=== PATIENT | male | born 1950 | race Caucasian/White ===

== ENCOUNTER 2020-05-12 10:24 | Inpatient (IN) | payer MEDICARE, OTHER ==
[~2020-05-12] VITALS: Ht 167.6 cm; Wt 73.0 kg
[~2020-05-12 10:24] MED LIST: ALBU2.5V38 IH; CLOP75TA15 PO; LORA10TA68 PO; MONT10TA22 PO; THEO400T PO
--- NOTE | 2020-05-12 10:24 | NUR ---
PT BIB FAMILY C/O SOB SINCE THIS AM. PT IS AAOX4, NOTED RESPIRATORY DISTRESS, HOOKED TO O2 VIA NB AT 15 LPM, HOOKED TO SHOVEL MECHANIC, KEPT RESTED AND COMFORTABLE. WILL CONTINUE TO MONITOR.
--- NOTE | 2020-05-12 10:28 | NUR ---
AT BEDSIDE FOR EVAL.
--- NOTE | 2020-05-12 10:30 | NUR ---
IV LINE ESTABLISHED BLOOD DRAWN AND SENT TO LAB.
[2020-05-12] MEDS ORDERED: IPRATROPIUM NEB FS 0.5 MG/2.5 ML AMPUL.NEB ONE ×2 (10:35→10:57)
[2020-05-12] MEDS ORDERED: ALBUTEROL FS 2.5 MG/3 ML VIAL.NEB ONE ×2 (10:35→10:57)
--- NOTE | 2020-05-12 10:35 | NUR ---
RT AT BEDSIDE FOR BREATHING TX.
[2020-05-12] MEDS ORDERED: methylPREDNISolone SOD SUCC 125 MG/2ML VIAL ONE (10:37)
[2020-05-12 10:43] LABS: BASOPHILS % (AUTO) 0.7 % (0.0-2.0); EOSINOPHILS % (AUTO) 16.7 % (0.0-6.0); HEMATOCRIT 47 % (39-51); HEMOGLOBIN 15.4 g/dL (13.5-17.5); LYMPHOCYTES # (AUTO) 1.9 /CMM (0.8-4.8); MEAN CORPUSCULAR HGB CONC 33 g/dl (31.0-36.0); MEAN CORPUSCULAR VOLUME 94 fL (80-96); MONOCYTES # (AUTO) 0.5 /CMM (0.1-1.30); MONOCYTES % (AUTO) 7.2 % (2.0-12.0); NEUTROPHILS # (AUTO) 3.1 /CMM (1.8-8.9); NEUTROPHILS % (AUTO) 46.4 % (43.0-81.0); PLATELET COUNT (AUTO) 315 /CMM (150-450); RED BLOOD CELL COUNT(AUTO) 4.96 MIL/uL (4.5-6.0); WHITE BLOOD COUNT (AUTO) 6.7 K/uL (4.3-11.0)
[2020-05-12] MEDS ORDERED: FLUT1BLS INH (10:45)
[2020-05-12] MEDS ORDERED: TAMS-12 PO (10:45)
[2020-05-12] MEDS ORDERED: VALS1TAB2 PO (10:45)
[2020-05-12] MEDS ORDERED: FOLIC PO (10:45)
[2020-05-12] MEDS ORDERED: MECL-159 PO (10:45)
[2020-05-12] MEDS ORDERED: CARV6.252 PO (10:45)
[2020-05-12] MEDS ORDERED: ALBU18HF2 INH (10:45)
[2020-05-12] MEDS ORDERED: ERGO500014 MT (10:45)
[2020-05-12] MEDS ORDERED: OMEP40CA13 PO (10:45)
--- NOTE | 2020-05-12 10:50 | NUR ---
RT ED GAVE VERBAL ORDER FOR 1 HR CONTINUOUS BREATHING TX. TX DONE.
--- NOTE | 2020-05-12 10:50 | NUR ---
COVID SPECIMEN AND INFLUENZA OBTAINED AND SENT TO LAB.
[2020-05-12] MEDS ORDERED: Magnesium 1GM/D5W 100ML PREMIX 200 ML IV ONE (10:56)
[2020-05-12 10:58] LABS: CARBON DIOXIDE 26 mmol/L (21-32); CHLORIDE 105 mmol/L (98-107); GLUCOSE 114 mg/dL (74-106); POTASSIUM 3.6 mmol/L (3.5-5.1); SODIUM SERUM 141 mmol/L (136-145); UREA NITROGEN, BLOOD 20 mg/dL (7-18)
[2020-05-12] MEDS ORDERED: methylPREDNISolone SOD SUCC 125 MG/2ML VIAL IV ONE (11:00)
[2020-05-12] MEDS ORDERED: Magnesium 1 GM/2 ML VIAL IV ONE (11:00)
[2020-05-12] MEDS ORDERED: ALBUTEROL FS 2.5 MG/3 ML VIAL.NEB NEB ONE (11:00)
[2020-05-12] MEDS ORDERED: IPRATROPIUM NEB FS 0.5 MG/2.5 ML AMPUL.NEB NEB ONE (11:00)
[2020-05-12 11:04] LABS: B-TYPE NATRIURETIC PEPTIDE 56 PG/ML (0-125)
--- NOTE | 2020-05-12 11:05 | NUR ---
MOVE SHEET COMPLETE AND CALLED FOR SOLITARIO BED.
[2020-05-12 11:36] LABS: LYMPHOCYTES % (MANUAL) 24 % (16-48); NEUTROPHILS % (MANUAL) 49 (42-76)
[2020-05-12 11:37] LABS: EOSINOPHILS % (MANUAL) 14 % (0-4); MONOCYTES % (MANUAL) 13 % (0-11.0)
--- NOTE | 2020-05-12 11:38 | NUR ---
[facility] CALLED HUMAN RESOURCES BENEFITS ADMINISTRATOR PAGED.
--- NOTE | 2020-05-12 12:34 | NUR ---
GOING SOLITARIO 103
--- NOTE | 2020-05-12 12:40 | NUR ---
REPORT GIVEN TO JAVIER JONES.
[2020-05-12] MEDS ORDERED: ONDANSETRON HCL/PF 4 MG/2 ML VIAL IVP PRN (13:00)
[2020-05-12] MEDS ORDERED: Z GUARD REMEDY 2 OZ OINT TP PRN (13:00)
[2020-05-12] MEDS ORDERED: MAGNESIUM HYDROXIDE 30 ML UDC PO PRN (13:00)
[2020-05-12] MEDS ORDERED: ZOLPIDEM TARTRATE 5 MG TABLET PO PRN (13:00)
[2020-05-12] MEDS ORDERED: MAG HYDROX/AL HYDROX/SIMETH 30 ML UDC PO PRN (13:00)
[2020-05-12] MEDS ORDERED: HYDROCODONE/APAP 5/325MG TABLET PO PRN (13:00)
[2020-05-12] MEDS ORDERED: ACETAMINOPHEN 325 MG TABLET PO PRN (13:00)
--- NOTE | 2020-05-12 13:08 | NUR ---
RN OPENING NOTE Received patient around 1pm via [employer] [place] assisted by 2 staff nurses. On NC 4L no signs of distress. Noted with coughing and wheezing. Per patient its because he got up from the gurney to walk to the bed. Vital signs within normal limits. AO X4 Amharic Speaking. Need desktop publishing specialist. Provided with urinal. Has LAC #18 flushes well. Has hearing aid on both ears. Safety measures implemented. Call light within reach. Will cont to monitor.
[2020-05-12 13:15] VITALS: BP 145/66
[2020-05-12 16:00] VITALS: BP 144/71
[2020-05-12 16:25] VITALS: BP 144/71
[2020-05-12] MEDS: methylPREDNISolone SOD SUCC 125 MG/2ML VIAL IV SCH (17:18)
--- NOTE | 2020-05-12 18:51 | NUR ---
RN CLOSING NOTE Patient in bed awake no signs of distress. on NC 4L tolerating well. o2 sat 98%. Alert oriented x4 Mongolian speaking. Tele monitor reading ST 104bpm. Urinal at bedside, collected 200ml clear yellow urine. No co pain or discomfort. Still coughing non productive. Less wheezing. All due meds given. No signs of adverse reaction to medications. Vital signs within normal limits. Safety measures maintained. Call light within reach. Will endorse to night nurse for woo.
--- NOTE | 2020-05-12 19:10 | NUR ---
RN OPENING NOTES: Rec'd pt in bed, A&Ox4 Yemeni speaking. SR on tele monitor. LAC #18 patent and flushed. Dressing c/d/i. Pt has urinal at bedside. No pain reported at this time. Safety measures in place. Will continue to monitor. Addendum: 05/12/20 at 2009 by GLENNY ESQUIVEL RN On 3LPM NC tolerating well. No SOB or resp distress noted.
[2020-05-12 20:00] VITALS: BP 143/72
[2020-05-12] MEDS: TAMSULOSIN 0.4 MG CAP.SR.24H PO SCH (21:01)
[2020-05-12] MEDS: IPRATROPIUM NEB FS 0.5 MG/2.5 ML AMPUL.NEB NEB PRN (23:27)
[2020-05-12] MEDS: ALBUTEROL FS 2.5 MG/0.5 ML VIAL.NEB NEB PRN (23:27)
[2020-05-13] VITALS: BP 125/68
[2020-05-13] MEDS: methylPREDNISolone SOD SUCC 125 MG/2ML VIAL IV SCH ×5 (00:21→22:16)
--- NOTE | 2020-05-13 01:57 | NUR ---
RN NOTE: Gave report to JAVIER Sin for NEAL. Pt in stable condition, sleeping.
[2020-05-13 04:00] VITALS: BP 141/65
[2020-05-13] MEDS: ALBUTEROL FS 2.5 MG/0.5 ML VIAL.NEB NEB PRN (04:56)
[2020-05-13] MEDS: IPRATROPIUM NEB FS 0.5 MG/2.5 ML AMPUL.NEB NEB PRN (04:56)
--- NOTE | 2020-05-13 05:27 | NUR ---
REPORTED TO DR. DO ABOUT PATIENT HAVING ASTHMA ATTACK AND BREATHING TX WAS GIVEN FOUR HOURS AGO AND THE ORDER IS Q6H. DR. DO CHANGED FREQUENCY TO Q4H NOTED AND CARRIED OUT.
[2020-05-13] MEDS ORDERED: IPRATROPIUM NEB FS 0.5 MG/2.5 ML AMPUL.NEB NEB PRN (05:30)
[2020-05-13] MEDS ORDERED: ALBUTEROL FS 2.5 MG/0.5 ML VIAL.NEB NEB PRN (05:30)
[2020-05-13 06:17] LABS: BASOPHILS % (AUTO) 0.1 % (0.0-2.0); HEMATOCRIT 40 % (39-51); HEMOGLOBIN 13.7 g/dL (13.5-17.5); LYMPHOCYTES # (AUTO) 0.4 /CMM (0.8-4.8); LYMPHOCYTES % (AUTO) 8.5 % (20.0-44.0); MEAN CORPUSCULAR HGB CONC 34 g/dl (31.0-36.0); MEAN CORPUSCULAR VOLUME 93 fL (80-96); MONOCYTES # (AUTO) 0.1 /CMM (0.1-1.30); MONOCYTES % (AUTO) 1.5 % (2.0-12.0); NEUTROPHILS # (AUTO) 4.7 /CMM (1.8-8.9); NEUTROPHILS % (AUTO) 89.9 % (43.0-81.0); PLATELET COUNT (AUTO) 227 /CMM (150-450); RED BLOOD CELL COUNT(AUTO) 4.32 MIL/uL (4.5-6.0); WHITE BLOOD COUNT (AUTO) 5.2 K/uL (4.3-11.0)
[2020-05-13 06:37] LABS: CALCIUM, SERUM 9.2 mg/dL (8.5-10.1); CREATININE 0.8 mg/dL (0.6-1.3); MAGNESIUM 2.7 mg/dL (1.8-2.4); PHOSPHORUS 3.7 mg/dL (2.5-4.9); POTASSIUM 3.8 mmol/L (3.5-5.1)
[2020-05-13 06:51] LABS: THYROID STIMULATING HORMONE 0.37 uIU/mL (0.358-3.74)
--- NOTE | 2020-05-13 07:20 | NUR ---
RN CLOSING NOTE PATIENT ALERT AND ORIENTED X1, CONFUSED. NO SOB OR ANY RESPIRATORY DISTRESS. ON ROOM AIR, 02 SAT 98%. DENIES ANY PAIN AT THIS TIME. VOIDED X2, NO S/S OF ANY URINARY RETENTION. ON TELE MONITORING, SINUS RHYTHM HR 70'S. BED LOCKED AND IN LOWEST POSITION. SIDERAILS UP X2. ALL SAFETY MEASURES IMPLEMENTED. CALL LIGHT WITHIN REACH. ENDORSED TO NEXT SHIFT. Addendum: 05/13/20 at 0724 by FRANCIS BROCK RN WRONG PATIENT, DISREGARD CHARTING.
--- NOTE | 2020-05-13 07:24 | NUR ---
PATIENT IN BED RESTING. NO SOB AT THIS TIME. ON 3LPM 02 VIA NASAL CANNULA. WHEEZING STILL HEARD AND NOTED. ON TELE MONITORING, SINUS RHYTHM HR 90'S. ALL NEEDS ATTENDED. BREATHING TX CHANGED TO Q4 PER DR. DO. BED LOCKED AND IN LOWEST POSITION. SIDERAILS UP X2. ALL SAFETY MEASURES IMPLEMENTED. CALL LIGHT WITHIN REACH. ENDORSED TO NEXT SHIFT.
--- NOTE | 2020-05-13 07:49 | NUR ---
OPTICAL ADVISOR NOTE PATIENT IN BED , ALERT AWAKE ON 3L NC OF O2WITH SLIGHT SOB NOTE , HAVING BREAKFAST,ON TELE MONITOR SR HR 87 , LAC HL INTACT AND FLUSHED WELL , BED IN LOWEST AND LOCKED POSITION, SAFETY MEASURE PROVIDED, CALL LIGHT WITHIN REACH , WILL CONT TO MONITOR
[2020-05-13 08:00] VITALS: BP 135/75
[2020-05-13] MEDS: VALSARTAN 80 MG TABLET PO SCH (08:07)
[2020-05-13] MEDS: PANTOPRAZOLE 40 MG TABLET.DR PO SCH (08:07)
[2020-05-13] MEDS: MONTELUKAST SODIUM (10MG) 10 MG TABLET PO SCH (08:07)
[2020-05-13] MEDS: ALBUTEROL FS 2.5 MG/0.5 ML VIAL.NEB NEB SCH ×3 (08:30→19:57)
[2020-05-13] MEDS: IPRATROPIUM NEB FS 0.5 MG/2.5 ML AMPUL.NEB NEB SCH ×3 (08:30→19:57)
--- NOTE | 2020-05-13 08:41 | NUR ---
CARD GAME OPERATOR NOTE NOTED WHEEZING UPON AUSCULTATION ,RT AT BEDSIDE ,DOING BREATHING TX
--- NOTE | 2020-05-13 12:00 | NUR ---
ms rn note having lunch , able to eat self
[2020-05-13 12:10] VITALS: BP 130/75
--- NOTE | 2020-05-13 13:47 | NUR ---
ms rn note dr marsh at bedside ,notified that patient has wheezing upon auscultation, notified that patient has breathing tx and Solu Medrol stated cont to current tx , will f\u
--- NOTE | 2020-05-13 14:44 | NUR ---
MS RN NOTE PT EVAL DONE, ABLE TO AMBULATE SELF, NOT IN DISTRESS
[2020-05-13 16:00] VITALS: BP 136/69
--- NOTE | 2020-05-13 18:30 | NUR ---
MS RN NOTE PATIENT RESTING COMFORTABLY, HAVING DINNER ,ALL NEEDS ATTENDED ,NO SOB AT THIS TIME, CALL LIGHT WITHIN REACH WILL CONT TO MONITOR
[2020-05-13 20:00] VITALS: BP 140/74
[2020-05-13] MEDS: TAMSULOSIN 0.4 MG CAP.SR.24H PO SCH (21:25)
[2020-05-14] MEDS: ALBUTEROL FS 2.5 MG/0.5 ML VIAL.NEB NEB SCH ×3 (01:20→13:21)
[2020-05-14] MEDS: IPRATROPIUM NEB FS 0.5 MG/2.5 ML AMPUL.NEB NEB SCH ×3 (01:20→13:21)
[2020-05-14 04:00] VITALS: BP 109/52
[2020-05-14] MEDS: methylPREDNISolone SOD SUCC 125 MG/2ML VIAL IV SCH (06:38)
--- NOTE | 2020-05-14 06:47 | NUR ---
RN notes In bed resting comfortablywith no apparent distress. Breathing even and unlabored. On 3lpm via nasal cannula tolerating well. Alert and oriented x 4, honduran speaking with little understanding of east timorese. No complaint of pain or discomfort. Vital signs wnl. Wants to go home in AM, needs to see his own hammerer tab which he had an appointment on thursday. Needs attended. Kept clean and dry. Will endorse to next shift for continuity of care.
--- NOTE | 2020-05-14 07:26 | NUR ---
PT IN BED, ALERT AND ORIENTED X 4, PRIMARILY BULGARIAN-SPEAKING. PT IS AMBULATORY WITH SKIN INTACT. PT ON CARDIAC DIET, WITH LAC #18 SL. PER PT, HAS A CREATIVE GURU APPT (HIS PRIMARY MD) 05/15, AND REQUESTS TO BE DC. WILL FOLLOW UP WITH MD FOR DC PLAN TODAY Addendum: 05/14/20 at 0729 by ELLI ORTIZ RN PT IN BED, ALERT AND ORIENTED X 4, PRIMARILY BULGARIAN-SPEAKING. PT IS AMBULATORY WITH SKIN INTACT. PT ON CARDIAC DIET, WITH LAC #18 SL. PER PT, HAS A CREATIVE GURU APPT (HIS PRIMARY MD) 05/15, AND REQUESTS TO BE DC. WILL FOLLOW UP WITH MD FOR DC PLAN TODAY. BED IN LOCKED LOWEST POSITION. CALL LIGHT WITHIN REACH. ALL SAFETY MEASURES IN PLACE. WILL CONTINUE TO MONITOR CLOSELY
[2020-05-14 08:00] VITALS: BP 137/54
[2020-05-14] MEDS: MONTELUKAST SODIUM (10MG) 10 MG TABLET PO SCH (08:21)
[2020-05-14] MEDS: PANTOPRAZOLE 40 MG TABLET.DR PO SCH (08:21)
[2020-05-14 08:22] VITALS: BP 137/54
[2020-05-14] MEDS: VALSARTAN 80 MG TABLET PO SCH (08:22)
--- NOTE | 2020-05-14 08:27 | NUR ---
WOUND CARE CONSULT: PT PRESENTS WITH INTACT SKIN. WILL SEE PRN. CURRENT BELÉN SCORE IS 19.
[2020-05-14] MEDS ORDERED: CIPR10DR LEFT EAR ×2 (11:06→11:23)
[2020-05-14] MEDS ORDERED: methylPREDNISolone SOD SUCC 40 MG/ML VIAL IV SCH (12:00)
[2020-05-14] MEDS ORDERED: PRED20TA PO (12:07)
--- NOTE | 2020-05-14 12:24 | NUR ---
DC ORDERS RECEIVED FROM MD AYON. PT AWARE, CONTACTING DAUGHTER FOR TRANSPORTATION.
--- NOTE | 2020-05-14 13:53 | NUR ---
DISCHARGE PAPERWORK COMPLETE AND REVIEWED WITH PT DAUGHTER. VITALS 132/70, HR 112, RR 20, TEMP 98.5. O2 SATURATION 92% AT 2.5 L. PT STATES HE HAS O2 AT HOME, USES INTERMITTENTLY NEEDED. NO SOB AT TIME OF DC. LAC IV REMOVED, WRISTBAND REMOVED. ALL NEEDS ATTENDED. PT ESCORTED OUTSIDE HOSPITAL VIA WHEELCHAIR, DISCHARGE PAPERWORK DISCUSSED WITH PT DAUGHTER
[2020-05-15] MEDS ORDERED: MONTELUKAST SODIUM (10MG) 10 MG TABLET PO SCH (18:00)
== END 2020-05-14 14:35 | disposition home or self-care (01) | DRG 190 ==
LOC: ER 10:26 → TELE1 12:38 → MEDSG1 05-13 07:42
DX: J44.1 Chronic obstructive pulmonary disease with (acute) exacerbation (principal); J96.00 Acute respiratory failure, unspecified whether with hypoxia or hypercapnia; J45.901 Unspecified asthma with (acute) exacerbation; I10 Essential (primary) hypertension; F17.210 Nicotine dependence, cigarettes, uncomplicated; N40.0 Benign prostatic hyperplasia without lower urinary tract symptoms; Z71.6 Tobacco abuse counseling
CPT/HCPCS: 36415; 71045-TC; 80048-TC; 80061-TC; 83605-TC; 83735-TC; 83880; 84100-TC; 84443-TC; 84484-TC; 85025-TC; 87040-TC; 87081-TC; 94760-TC; 94799-TC; 97112-TC; 97116-TC; 97530-TC; C9803; G0378; J2920; J2930; J3475

== ENCOUNTER 2021-11-09 05:50 | Inpatient (IN) | payer MEDICARE, OTHER ==
[~2021-11-09] VITALS: Ht 165.1 cm; Wt 73.5 kg
[~2021-11-09 05:50] MED LIST changes: +ALBU18HF2 INH; -ALBU2.5V38 IH; +CARV6.252 PO; -CLOP75TA15 PO; +ERGO500093 MT; +FLUT1BLS INH; +FOLIC PO; -LORA10TA68 PO; +OMEP40CA21 PO; +PRED20TA PO; +TAMS-12 PO; -THEO400T PO; +VALS1TAB2 PO
--- NOTE | 2021-11-09 06:00 | NUR ---
BIBRA FROM HOME C/O SOB, BILATERAL WHEEZES. 1 NEB TX PATTERNMAKER PLASTER AND PLASTIC WITH SOME RELIEF. WHEEZES STILL NOTED BILATERALLY 94%ON 3LPM. PT AWAKE AND ALERT WITH MILDLY INCREASED WORK OF BREATHING. PT PLACED ON MONITOR AND V/S WNL.
[2021-11-09] MEDS ORDERED: IPRATROPIUM NEB FS 0.5 MG/2.5 ML AMPUL.NEB ONE (06:13)
[2021-11-09] MEDS ORDERED: ALBUTEROL FS 2.5 MG/3 ML VIAL.NEB ONE (06:13)
--- NOTE | 2021-11-09 06:13 | NUR ---
COVID ANTIGEN SWAB COLLECTED AND SENT TO LAB
[2021-11-09] MEDS ORDERED: methylPREDNISolone SOD SUCC 125 MG/2ML VIAL ONE (06:14)
--- NOTE | 2021-11-09 06:19 | NUR ---
18G IV LINE ESTABLISHED AT [facility] BLOOD DRAWN AND SENT TO LAB
--- NOTE | 2021-11-09 06:20 | NUR ---
RT AT BEDSIDE FOR BREATHING TREATMENT
[2021-11-09] MEDS ORDERED: IPRATROPIUM NEB FS 0.5 MG/2.5 ML AMPUL.NEB NEB ONE (06:30)
[2021-11-09] MEDS ORDERED: methylPREDNISolone SOD SUCC 125 MG/2ML VIAL IV ONE (06:30)
[2021-11-09] MEDS ORDERED: ALBUTEROL FS 2.5 MG/3 ML VIAL.NEB CONTNEB ONE (06:30)
--- NOTE | 2021-11-09 07:05 | NUR ---
urine collected and sent to lab
--- NOTE | 2021-11-09 07:20 | NUR ---
Recieved pt from Steph rn pt awake on breathing tx resbiration spont and easy O2 SAT 98% with 2 l nc contenue on
[2021-11-09 07:28] LABS: BASOPHILS % (AUTO) 0.6 % (0.0-2.0); EOSINOPHILS % (AUTO) 18.2 % (0.0-6.0); HEMATOCRIT 44 % (39-51); HEMOGLOBIN 14.8 g/dL (13.5-17.5); LYMPHOCYTES # (AUTO) 1.8 K/uL (0.8-4.8); LYMPHOCYTES % (AUTO) 43.4 % (20.0-44.0); MEAN CORPUSCULAR HGB CONC 34 g/dl (31.0-36.0); MEAN CORPUSCULAR VOLUME 92 fL (80-96); MONOCYTES # (AUTO) 0.3 K/uL (0.1-1.30); MONOCYTES % (AUTO) 8.2 % (2.0-12.0); NEUTROPHILS # (AUTO) 1.2 K/uL (1.8-8.9); NEUTROPHILS % (AUTO) 29.6 % (43.0-81.0); PLATELET COUNT (AUTO) 181 K/uL (150-450); RED BLOOD CELL COUNT(AUTO) 4.79 MIL/uL (4.5-6.0); WHITE BLOOD COUNT (AUTO) 4.2 K/uL (4.3-11.0)
--- NOTE | 2021-11-09 07:46 | NUR ---
Lea for lab result
--- NOTE | 2021-11-09 07:49 | NUR ---
CALLED MAIN LAB TO FOLLOW UP URINE RESULT.
[2021-11-09 08:07] LABS: ALANINE AMINOTRANSFERASE 33 U/L (12-78); ALBUMIN 3.9 g/dL (3.4-5.0); ALKALINE PHOSPHATASE 77 U/L (46-116); ASPARTATE AMINOTRANSFERASE 18 U/L (15-37); BILIRUBIN,DIRECT 0.1 mg/dL (0.0-0.2); BILIRUBIN,TOTAL 0.5 mg/dL (0.2-1.0); CALCIUM, SERUM 8.9 mg/dL (8.5-10.1); CARBON DIOXIDE 29 mmol/L (21-32); CHLORIDE 104 mmol/L (98-107); GLUCOSE 117 mg/dL (74-106); POTASSIUM 3.5 mmol/L (3.5-5.1); SODIUM SERUM 140 mmol/L (136-145); TOTAL PROTEIN, SERUM 7.4 g/dL (6.4-8.2); UREA NITROGEN, BLOOD 12 mg/dL (7-18)
[2021-11-09 08:30] LABS: BILIRUBIN,URINE NEGATIVE (NEGATIVE); COLOR,URINE YELLOW (YELLOW); LEUKOCYTE ESTERASE ,URINE NEGATIVE (NEGATIVE); NITRITE, URINE NEGATIVE (NEGATIVE); PROTEIN,URINE NEGATIVE (NEGATIVE); UGLUCOSE NEGATIVE (NEGATIVE); UROBILINOGEN,URINE 0.2 EU/dL (0.2)
--- NOTE | 2021-11-09 08:33 | NUR ---
to ct scan via jessica
--- NOTE | 2021-11-09 08:36 | NUR ---
MOVE SHEET SUBMITTED.
--- NOTE | 2021-11-09 08:46 | NUR ---
[facility] CALLED CASH MANAGEMENT COORDINATOR PAGED.
--- NOTE | 2021-11-09 08:48 | NUR ---
Wating for room
[2021-11-09 08:51] LABS: BACTERIA,URINE None seen /HPF (None Seen); RBC,URINE 0-2 /HPF (0-2); SQUAMOUS EPITHELIAL CELL,UR Few /HPF (None Seen); WBC,URINE NONE SEEN /HPF (0-3)
--- NOTE | 2021-11-09 10:00 | NUR ---
SOB and audible whezzing with mild exertion o2 sat 92% on fio2 3lnc
[2021-11-09] MEDS ORDERED: MAG HYDROX/AL HYDROX/SIMETH 30 ML UDC PO PRN (11:00)
[2021-11-09] MEDS ORDERED: LORAZEPAM INJ 2 MG/ML VIAL IV PRN (11:00)
[2021-11-09] MEDS ORDERED: ALBUTEROL FS 2.5 MG/0.5 ML VIAL.NEB IH PRN (11:00)
[2021-11-09] MEDS ORDERED: Z GUARD REMEDY 4 OZ OINT TP PRN (11:00)
[2021-11-09] MEDS ORDERED: ONDANSETRON HCL/PF 4 MG/2 ML VIAL IVP PRN (11:00)
[2021-11-09] MEDS ORDERED: AZITHROMYCIN 500 MG in IV D5W 250 ML IV SCH (11:00)
[2021-11-09] MEDS ORDERED: ACETAMINOPHEN 325 MG TABLET PO PRN (11:00)
[2021-11-09] MEDS ORDERED: MAGNESIUM HYDROXIDE 30 ML UDC PO PRN (11:00)
[2021-11-09] MEDS: AZITHROMYCIN 500 MG in IV D5W 250 ML IV SCH (11:11)
[2021-11-09] MEDS: methylPREDNISolone SOD SUCC 125 MG/2ML VIAL IV SCH ×3 (11:11→23:46)
--- NOTE | 2021-11-09 12:00 | NUR ---
ROOM GIVEN [id number].
--- NOTE | 2021-11-09 12:06 | NUR ---
Omer at bed side conditin up date IVBP ANTIBOTIC ETHROMYCIN 500MG IVPB INFUSED AND PATENT
--- NOTE | 2021-11-09 12:08 | NUR ---
REPORT GIVEN TO JAVIER POLANCO FOR NEAL.
--- NOTE | 2021-11-09 13:15 | NUR ---
IMMIGRATION LAW SPECIALISTPUSHCART PEDDLER NOTES RECEIVED PATIENT FROM ER VIA RGLYNDON, PATIENT WITH WHEEZING AND SHORTNESS OF BREATH, BUT O2 SATURATION AT 97%. REQUEST PLACED FOR PRN ALBUTEROL BREATHING TREATMENT WITH RESPIRATORY THERAPIST. PATIENT ON 3 LPM O2 VIA CANNULA. R AC # 20 G SL CLEAN, INTACT, AND FLUSHING WELL. TELE MONITOR READING SINUS TACH 98. SAFETY MEASURES IN PLACE: BED IN LOWEST LOCKED POSITION, SIDE RAILS UP X 2, CALL LIGHT WITHIN REACH. WILL CONTINUE TO MONITOR.
[2021-11-09 13:30] VITALS: BP 136/73
[2021-11-09 16:00] VITALS: BP 150/64
[2021-11-09] MEDS: ALBUTEROL FS 2.5 MG/0.5 ML VIAL.NEB IH PRN ×2 (16:07→22:13)
[2021-11-09] MEDS: FLUTICASONE/VILANTEROL 1 EACH BLST.W.DEV IH SCH (17:56)
--- NOTE | 2021-11-09 19:00 | NUR ---
SECURITIES AND REAL ESTATE DIRECTOR CLOSING NOTES PATIENT LAYING IN BED, A/O X 4, ABLE TO MAKE NEEDS KNOWN. TOLERATING WELL ON 2 LPM O2 VIA CANNULA WITH NO SOB OR S/S RESPIRATORY DISTRESS. NO COMPLAINTS OF PAIN OR DISCOMFORT AT THIS TIME. R AC # 20 G CLEAN, INTACT, AND FLUSHING WELL. TELE MONITOR READING SINUS TACH 100. SAFETY MEASURES IN PLACE: BED IN LOWEST LOCKED POSITION, SIDE RAILS UP X 2, CALL LIGHT WITHIN REACH. WILL ENDORSE TO DIRECTOR NURSING SERVICE FOR NEAL.
--- NOTE | 2021-11-09 19:30 | NUR ---
PROVIDER NETWORK MGR NOTE OPENING RECEIVED PATIENT IN BED A/OX4. NO S/S OF APPARENT DISTRESS ON 3LPM OF O2 VIA NC, BREATHING EVEN AND UNLABORED. DENIES ANT PAIN AND DISCOMFORT. TELE MONITOR READING SINUS TACH AT 103 BPM. NO FLUIDS RUNNING AT THIS TIME. SAFETY IN PLACE. ORIENTED WITH THE USE OF CALL LIGHT. WILL CONTINUE WITH PLAN OF CARE FOR PATIENT.
[2021-11-09 20:00] VITALS: BP 124/76
[2021-11-09] MEDS: TAMSULOSIN 0.4 MG CAP.SR.24H PO SCH (21:29)
[2021-11-10] VITALS: BP 139/67
[2021-11-10 04:00] VITALS: BP 124/59
[2021-11-10] MEDS: methylPREDNISolone SOD SUCC 125 MG/2ML VIAL IV SCH ×4 (05:58→23:30)
[2021-11-10] MEDS: ALBUTEROL FS 2.5 MG/0.5 ML VIAL.NEB IH PRN ×2 (06:02→23:39)
--- NOTE | 2021-11-10 06:40 | NUR ---
FRUIT SHIPPER CLOSING NOTE PATIENT IN BED, A/X4. NO S/S OF APPARENT DISTRESS ON 3 LPM OF O2 VIA NC. X2 EPISODES OF SOB THAT WAS MANAGED WITH BREATHING TREATMENTS. DENIES PAIN AT THIS TIME. BREATHING EVEN AND UNLABORED AT THIS TIME. TELE MONITOR READING SR WITH 85BPM AT THIS TIME. NO FLUIDS RUNNING AT THIS TIME. ALL NEEDS ATTENDED. ALL SCHEDULED MEDICATION ADMINISTERED. WILL ENDORSE TO JAVIER POLANCO FOR CONTINUITY OF CARE.
[2021-11-10 06:45] LABS: HEMATOCRIT 39 % (39-51); HEMOGLOBIN 13.2 g/dL (13.5-17.5); LYMPHOCYTES # (AUTO) 0.6 K/uL (0.8-4.8); LYMPHOCYTES % (AUTO) 9.8 % (20.0-44.0); MEAN CORPUSCULAR HGB CONC 34 g/dl (31.0-36.0); MEAN CORPUSCULAR VOLUME 92 fL (80-96); MONOCYTES # (AUTO) 0.1 K/uL (0.1-1.30); MONOCYTES % (AUTO) 1.3 % (2.0-12.0); NEUTROPHILS # (AUTO) 5.2 K/uL (1.8-8.9); NEUTROPHILS % (AUTO) 88.9 % (43.0-81.0); PLATELET COUNT (AUTO) 179 K/uL (150-450); RED BLOOD CELL COUNT(AUTO) 4.19 MIL/uL (4.5-6.0); WHITE BLOOD COUNT (AUTO) 5.8 K/uL (4.3-11.0)
[2021-11-10 06:59] LABS: CARBON DIOXIDE 28 mmol/L (21-32); CHLORIDE 104 mmol/L (98-107); CREATININE 0.9 mg/dL (0.6-1.3); GLUCOSE 155 mg/dL (74-106); MAGNESIUM 2.2 mg/dL (1.8-2.4); PHOSPHORUS 3.7 mg/dL (2.5-4.9); SODIUM SERUM 139 mmol/L (136-145); UREA NITROGEN, BLOOD 20 mg/dL (7-18)
--- NOTE | 2021-11-10 07:00 | NUR ---
PSYCH NP OPENING NOTE PATIENT LAYING IN BED A/OX4. NO S/S OF APPARENT DISTRESS ON 3LPM OF O2 VIA NC, BREATHING EVEN AND UNLABORED. NO PAIN OR DISCOMFORT. TELE MONITOR READING SINUS TACH AT 100 BPM. DONALD # 20 G SL CLEAN, INTACT, AND FLUSHING WELL. NO FLUIDS RUNNING AT THIS TIME. SAFETY MEASURES IN PLACE: BED IN LOWEST LOCKED POSITION, SIDE RAILS UP X 2, CALL LIGHT WITHIN REACH. IN PLACE. WILL CONTINUE TO MONITOR.
[2021-11-10] MEDS: FLUTICASONE/VILANTEROL 1 EACH BLST.W.DEV IH SCH ×2 (09:22→17:52)
[2021-11-10] MEDS: MONTELUKAST SODIUM (10MG) 10 MG TABLET PO SCH (09:23)
[2021-11-10] MEDS ORDERED: FUROSEMIDE 40 MG/4 ML VIAL IV ONE (10:00)
[2021-11-10] MEDS: AZITHROMYCIN 500 MG in IV D5W 250 ML IV SCH (11:31)
[2021-11-10] MEDS ORDERED: GUAIFENESIN/CODEINE 10 ML UDC PO PRN (15:00)
[2021-11-10] MEDS ORDERED: LORAZEPAM 0.5 MG TABLET PO PRN (15:00)
--- NOTE | 2021-11-10 15:26 | NUR ---
MS RN NOTE PATIENT NOTED WITH DRY COUGH AND REQUESTED MEDICATION. PRN GUAIFENESIN 20 MG ORAL SOLUTION ADMINISTERED ORDERED. WILL CONTINUE TO MONITOR FOR S/S OF COUGH.
--- NOTE | 2021-11-10 19:00 | NUR ---
FLEXIBLE MACHINING SYSTEM MACHINIST CLOSING NOTE PATIENT LAYING IN BED A/OX4. NO S/S OF APPARENT DISTRESS ON 3LPM OF O2 VIA NC, BREATHING EVEN AND UNLABORED. NO PAIN OR DISCOMFORT. TELE MONITOR READING SINUS TACH AT 88 BPM. DONALD # 20 G SL CLEAN, INTACT, AND FLUSHING WELL. NO FLUIDS RUNNING AT THIS TIME. SAFETY MEASURES IN PLACE: BED IN LOWEST LOCKED POSITION, SIDE RAILS UP X 2, CALL LIGHT WITHIN REACH. ALL NEEDS MET. WILL ENDORSE TO RV REPAIR TECHNICIAN FOR NEAL. Addendum: 11/10/21 at 1933 by COLLIN TENORIO RN PATIENT ON MED-SURG STATUS WITHOUT TELEMETRY MONITORING AT THIS TIME.
--- NOTE | 2021-11-10 19:29 | NUR ---
MS RN NOTE RECEIVED PATIENT IN BED. A/OX4. NO S/S OF APPARENT DISTRESS IN 3LPM OF O2 VIA NC. BREATHING EVEN AND UNLABORED AT THIS TIME. DENIES PAIN. NO FLUIDS RUNNING AT THIS TIME. ORIENTED WITH THE USE OF CALL LIGHT. SAFETY IN PLACE. WILL CONTINUE WITH PATIENT'S PLAN OF CARE.
[2021-11-10 20:00] VITALS: BP 142/67
[2021-11-10 21:06] VITALS: BP 142/67
[2021-11-10] MEDS: TAMSULOSIN 0.4 MG CAP.SR.24H PO SCH (21:25)
--- NOTE | 2021-11-10 21:28 | NUR ---
MS JAVIER NOTE- DISCREPANCY SINDY PULLED OUT ANOTHER CAPSULE OF TAMSULOSIN. THE FIRST ONE PULLED OUT DROPPED ON THE FLOOR. WASTED ON PROPER BIN.
[2021-11-11] MEDS: methylPREDNISolone SOD SUCC 125 MG/2ML VIAL IV SCH ×3 (05:32→16:07)
[2021-11-11 06:20] LABS: HEMATOCRIT 39 % (39-51); HEMOGLOBIN 13.1 g/dL (13.5-17.5); LYMPHOCYTES # (AUTO) 0.6 K/uL (0.8-4.8); LYMPHOCYTES % (AUTO) 6.9 % (20.0-44.0); MEAN CORPUSCULAR HGB CONC 34 g/dl (31.0-36.0); MEAN CORPUSCULAR VOLUME 92 fL (80-96); MONOCYTES # (AUTO) 0.1 K/uL (0.1-1.30); MONOCYTES % (AUTO) 1.2 % (2.0-12.0); NEUTROPHILS # (AUTO) 8.4 K/uL (1.8-8.9); NEUTROPHILS % (AUTO) 91.9 % (43.0-81.0); PLATELET COUNT (AUTO) 176 K/uL (150-450); RED BLOOD CELL COUNT(AUTO) 4.21 MIL/uL (4.5-6.0); WHITE BLOOD COUNT (AUTO) 9.2 K/uL (4.3-11.0)
--- NOTE | 2021-11-11 06:56 | NUR ---
MS RN CLOSING NOTE PATIENT IN BED, A/OX4. NO S/S OF APPARENT DISTRESS ON AND OFF O2 3LPM. BREATHING EVEN AND UNLABORED AT THIS TIME. AMBULATES WITH STEADY GAIT. R. AC #20G ON SALINE LOCK-- INTACT AND PATENT. ALL NEEDS ATTENDED. ALL SCHEDULED MEDICATIONS ADMINISTERED. WILL ENDORSE TO MORNING SHIFT RN FOR CONTINUITY OF CARE.
[2021-11-11 07:20] LABS: CALCIUM, SERUM 8.8 mg/dL (8.5-10.1); CARBON DIOXIDE 27 mmol/L (21-32); CHLORIDE 102 mmol/L (98-107); CREATININE 1.1 mg/dL (0.6-1.3); GLUCOSE 148 mg/dL (74-106); POTASSIUM 4.1 mmol/L (3.5-5.1); SODIUM SERUM 139 mmol/L (136-145); UREA NITROGEN, BLOOD 31 mg/dL (7-18)
--- NOTE | 2021-11-11 07:45 | NUR ---
RN OPENING NOTE PATIENT AMBULATING IN ROOM, A/OX4. NO S/S OF APPARENT DISTRESS ON 3LPM OF O2 VIA NC, BREATHING EVEN AND NON-LABORED. PROVIDED 25' NC TUBING SO PT DOESN'T REMOVE HIS, NO PAIN OR DISCOMFORT. DONALD # 20 G SL CLEAN, INTACT, AND FLUSHING WELL. NO FLUIDS RUNNING AT THIS TIME. SAFETY MEASURES IN PLACE: BED IN LOWEST LOCKED POSITION, SIDE RAILS UP X 2, CALL LIGHT WITHIN REACH. IN PLACE. WILL CONTINUE TO MONITOR/ ASSIST
[2021-11-11 08:00] VITALS: BP 148/51
[2021-11-11 08:15] VITALS: BP 148/51
[2021-11-11] MEDS: MONTELUKAST SODIUM (10MG) 10 MG TABLET PO SCH (08:55)
[2021-11-11] MEDS: FLUTICASONE/VILANTEROL 1 EACH BLST.W.DEV IH SCH ×2 (08:57→16:07)
[2021-11-11] MEDS: AZITHROMYCIN 500 MG in IV D5W 250 ML IV SCH (11:52)
[2021-11-11] MEDS: FUROSEMIDE 20 MG TABLET PO SCH (14:17)
[2021-11-11 16:18] VITALS: BP 132/63
--- NOTE | 2021-11-11 18:32 | NUR ---
RN CLOSING NOTE PATIENTSITTING IN BED IN ROOM, A/OX4. NO S/S OF APPARENT DISTRESS ON 3LPM OF O2 VIA NC, BREATHING EVEN AND NON-LABORED, NO PAIN OR DISCOMFORT. DONALD # 20 G SL CLEAN, INTACT, AND FLUSHING WELL. NO FLUIDS RUNNING AT THIS TIME. SAFETY MEASURES IN PLACE: BED IN LOWEST LOCKED POSITION, SIDE RAILS UP X 2, CALL LIGHT WITHIN REACH. IN PLACE. WILL CONTINUE TO MONITOR/ ASSIST
[2021-11-11 20:00] VITALS: BP 152/72
--- NOTE | 2021-11-11 20:05 | NUR ---
RN NOTE PATIENT RECEIVED AWAKE IN BED. A/OX4. NO S/S OF DISTRESS, BREATHING ON 3L NC W/O DIFFICULTY. RAC #20 INTACT AND PATENT. SAFETY MEASURES IN PLACE: BED AT LOWEST POSITION, LOCKED, RAILS UPX3, CALL CALLAWAY WITHIN REACH. WILL CONTINUE TO MONITOR PATIENT.
[2021-11-11] MEDS: TAMSULOSIN 0.4 MG CAP.SR.24H PO SCH (21:29)
[2021-11-12 06:33] LABS: HEMATOCRIT 42 % (39-51); LYMPHOCYTES # (AUTO) 1.3 K/uL (0.8-4.8); LYMPHOCYTES % (AUTO) 14.4 % (20.0-44.0); MEAN CORPUSCULAR HGB CONC 34 g/dl (31.0-36.0); MEAN CORPUSCULAR VOLUME 93 fL (80-96); MONOCYTES # (AUTO) 0.6 K/uL (0.1-1.30); MONOCYTES % (AUTO) 6.6 % (2.0-12.0); PLATELET COUNT (AUTO) 187 K/uL (150-450); RED BLOOD CELL COUNT(AUTO) 4.52 MIL/uL (4.5-6.0); WHITE BLOOD COUNT (AUTO) 8.9 K/uL (4.3-11.0)
[2021-11-12 06:52] LABS: CALCIUM, SERUM 9.1 mg/dL (8.5-10.1); CARBON DIOXIDE 31 mmol/L (21-32); CHLORIDE 102 mmol/L (98-107); GLUCOSE 111 mg/dL (74-106); PHOSPHORUS 3.7 mg/dL (2.5-4.9); POTASSIUM 4.2 mmol/L (3.5-5.1); SODIUM SERUM 139 mmol/L (136-145); UREA NITROGEN, BLOOD 34 mg/dL (7-18)
[2021-11-12 07:10] LABS: MAGNESIUM 2.6 mg/dL (1.8-2.4)
--- NOTE | 2021-11-12 07:48 | NUR ---
RN CLOSING NOTE PATIENT IS AWAKE IN BED. A/OX4. NO S/S OF DISTRESS, BREATHING WELL ON 3L NC W/O DIFFICULTY. RAC#20 INTACT AND PATENT. SAFETY MEASURES IN PLACE: BED AT LOWEST POSITION, LOCKED, RAILS UP X3, CALL CALLAWAY WITHIN REACH. REPORT ENDORSED TO AND ACKNOWLEDGED BY JEFRY DAY SHIFT RN, FOR NEAL.
--- NOTE | 2021-11-12 07:53 | NUR ---
RN OPENING NOTE PATIENT IN BED RESTING, SLEEPING, AWAKENS TO VERBAL STIMULI. A/O X 4. NO S/S OF PAIN NOTED AT THIS TIME. ON 3L OXYGEN, NO DISTRESS OR SHORTNESS OF BREATH NOTED. IV ACCESS RAC #20G, INTACT, PATENT AND FLUSHING WELL. FALL AND SAFETY MEASURES IN PLACE, BED ALARM ON, BED IN LOW AND LOCK POSITION, CALL LIGHT AND TABLE WITHIN EASY REACH, SIDE RAILS UP X2. WILL CONTINUE TO MONITOR.
[2021-11-12 08:00] VITALS: BP 136/66
[2021-11-12] MEDS: FUROSEMIDE 20 MG TABLET PO SCH (08:33)
[2021-11-12] MEDS: MONTELUKAST SODIUM (10MG) 10 MG TABLET PO SCH (08:33)
[2021-11-12] MEDS: FLUTICASONE/VILANTEROL 1 EACH BLST.W.DEV IH SCH ×2 (08:33→16:27)
[2021-11-12] MEDS: methylPREDNISolone SOD SUCC 125 MG/2ML VIAL IV SCH (08:34)
[2021-11-12] MEDS: AZITHROMYCIN 500 MG in IV D5W 250 ML IV SCH (11:48)
[2021-11-12 15:44] VITALS: BP 134/80
--- NOTE | 2021-11-12 19:23 | NUR ---
RN CLOSING NOTE PATIENT IN BED RESTING, AWAKE. A/O X 4. NO S/S OF PAIN NOTED AT THIS TIME. ON 3L OXYGEN, NO DISTRESS OR SHORTNESS OF BREATH NOTED. IV ACCESS RAC #20G, INTACT, PATENT AND FLUSHING WELL. FALL AND SAFETY MEASURES IN PLACE, BED ALARM ON, BED IN LOW AND LOCK POSITION, CALL LIGHT AND TABLE WITHIN EASY REACH, SIDE RAILS UP X2. WILL ENDORSE TO SAFETY SUPERVISOR.
--- NOTE | 2021-11-12 19:24 | NUR ---
RN OPENING NOTE PATIENT AWAKE IN BED. A/OX4. NO S/S OF DISTRESS, BREATHING WELL ON 3L NC. RAC #20 SL. SAFETY MEASURES IN PLACE: BED AT LOWEST POSITION, LOCKED, RAILS UP X3, CALL CALLAWAY WITHIN REACH. WILL CONTINUE TO MONITOR PATIENT.
[2021-11-12 20:00] VITALS: BP 140/78
[2021-11-12] MEDS: TAMSULOSIN 0.4 MG CAP.SR.24H PO SCH (21:19)
[2021-11-13 06:14] LABS: EOSINOPHILS % (AUTO) 0.3 % (0.0-6.0); HEMATOCRIT 42 % (39-51); LYMPHOCYTES # (AUTO) 1.4 K/uL (0.8-4.8); LYMPHOCYTES % (AUTO) 20.7 % (20.0-44.0); MEAN CORPUSCULAR HGB CONC 33 g/dl (31.0-36.0); MEAN CORPUSCULAR VOLUME 92 fL (80-96); MONOCYTES # (AUTO) 0.6 K/uL (0.1-1.30); MONOCYTES % (AUTO) 8.4 % (2.0-12.0); NEUTROPHILS # (AUTO) 4.8 K/uL (1.8-8.9); NEUTROPHILS % (AUTO) 70.6 % (43.0-81.0); PLATELET COUNT (AUTO) 171 K/uL (150-450); RED BLOOD CELL COUNT(AUTO) 4.54 MIL/uL (4.5-6.0); WHITE BLOOD COUNT (AUTO) 6.8 K/uL (4.3-11.0)
[2021-11-13 07:15] LABS: CALCIUM, SERUM 8.7 mg/dL (8.5-10.1); CARBON DIOXIDE 30 mmol/L (21-32); CHLORIDE 103 mmol/L (98-107); GLUCOSE 105 mg/dL (74-106); MAGNESIUM 2.6 mg/dL (1.8-2.4); PHOSPHORUS 3.2 mg/dL (2.5-4.9); POTASSIUM 4.2 mmol/L (3.5-5.1); SODIUM SERUM 137 mmol/L (136-145); UREA NITROGEN, BLOOD 30 mg/dL (7-18)
--- NOTE | 2021-11-13 07:25 | NUR ---
RN CLOSING NOTE PATIENT ASLEEP IN BED. A/OX4. NO S/S OF DISTRESS, BREATHING W/O DIFFICULTY ON 3L NC. RAC #20 INTACT AND PATENT. SAFETY MEASURES IN PLACE: BED AT LOWEST POSITION, LOCKED, RAILS UP X2, CALL CALLAWAY WITHIN REACH. REPORT ENDORSED TO AND ACKNOWLEDGED BY DAY SHIFT RNSHIREEN.
--- NOTE | 2021-11-13 07:29 | NUR ---
MS RN OPENING NOTES RECEIVED PATIENT IN BED; AWAKE, ALERT AND ORIENTED X4. ABLE TO MAKE NEEDS KNOWN. ON O2 AT 3L/MIN VIA NC, WELL TOLERATED. BREATHING IS EVEN AND UNLABORED, NOT IN ANY SIGN OF RESPIRATORY DISTRESS NOTED. IV ACCESS ON RAC G#20 INTACT AND PATENT. SAFETY MEASURES IN PLACE: CALL LIGHT WITHIN EASY REACH, SIDE RAILS UP X2, BED IN LOWEST AND LOCKED POSITION. WILL CONTINUE TO MONITOR AND WITH PLAN OF CARE.
[2021-11-13 08:00] VITALS: BP 137/68
[2021-11-13] MEDS: MONTELUKAST SODIUM (10MG) 10 MG TABLET PO SCH (08:41)
[2021-11-13] MEDS: FUROSEMIDE 20 MG TABLET PO SCH (08:41)
[2021-11-13] MEDS: FLUTICASONE/VILANTEROL 1 EACH BLST.W.DEV IH SCH (08:42)
[2021-11-13] MEDS ORDERED: methylPREDNISolone SOD SUCC 125 MG/2ML VIAL IV SCH (09:00)
[2021-11-13] MEDS ORDERED: PRED50TA PO (11:03)
[2021-11-13] MEDS ORDERED: FURO20TA4 PO (11:03)
[2021-11-13] MEDS: AZITHROMYCIN 500 MG in IV D5W 250 ML IV SCH (12:33)
--- NOTE | 2021-11-13 13:37 | NUR ---
ELECTRICAL INSTALLATION INSPECTOR NOTE PT DISCHARGED TO HOME IN STABLE CONDITION. PT A/OX4, ABLE TO MAKE NEEDS KNOWN. ON RA, TOLERATING WELL. WITH SPO2 OF 92%. PT HAS A HX OF COPD. BREATHING UNLABORED WITH NO SIGN OF RESPIRATORY DISTRESS. V/S TAKEN, STABLE, AND RECORDED. SKIN INTACT WITH NO VISUAL SKIN IMPAIRMENT NOTED. ALL BELONGINGS ACCOUNTED FOR. ALL DISCHARGED INSTRUCTIONS AND PATIENT TEACHING PROVIDED AND DOCUMENTS GIVEN TO PT. PT VERBALIZED UNDERSTANDING AND SIGNED DISCHARGED DOCUMENTS. IV ACCESS ON RAC G #20 REMOVED WITH NO ACTIVE BLEEDING NOTED. DRY PRESSURE DRESSING APPLIED AT SITE. PT LEFT THE UNIT AMBULATORY WITH DAUGHTER MEHRDAD AT 1320 IN PRIVATE CAR. PT REFUSED TO USE WHEELCHAIR AND BE ACCOMPANIED BY BUTTON GRADER. AND CHARGED NURSE AWARE OF DISCHARGED.
== END 2021-11-13 12:00 | disposition home or self-care (01) | DRG 189 ==
LOC: ER 05:58 → TRANSITION 10:18 → TELE 12:47 → MED 11-10 13:53
PROVIDERS: ADMIT Internal Medicine; ATTEND Internal Medicine
DX: J96.01 Acute respiratory failure with hypoxia (principal); I50.33 Acute on chronic diastolic (congestive) heart failure; J44.1 Chronic obstructive pulmonary disease with (acute) exacerbation; J45.901 Unspecified asthma with (acute) exacerbation; J82.83 Eosinophilic asthma; N40.0 Benign prostatic hyperplasia without lower urinary tract symptoms; I11.0 Hypertensive heart disease with heart failure; F17.200 Nicotine dependence, unspecified, uncomplicated; Z98.890 Other specified postprocedural states; Z88.6 Allergy status to analgesic agent; Z79.51 Long term (current) use of inhaled steroids; Z79.899 Other long term (current) drug therapy; J32.9 Chronic sinusitis, unspecified
CPT/HCPCS: 36415; 71045-TC; 80048-TC; 80076-TC; 81001; 83605-TC; 83735-TC; 83880; 84100-TC; 84484-TC; 85025-TC; 85730-TC; 87040-TC; 87081-TC; 87086-TC; 93307-TC; 94799-TC; C9803; G0378; J0456; J1940; J2930; J7030; J7060

== ENCOUNTER 2023-05-11 15:38 | Emergency (ER) | payer MEDICARE, OTHER ==
[~2023-05-11] VITALS: Ht 167.6 cm; Wt 72.1 kg
[~2023-05-11 15:38] MED LIST changes: -FOLIC PO; +FURO20TA4 PO; -PRED20TA PO; +PRED50TA PO
[2023-05-11] MEDS ORDERED: HYDROCODONE/APAP 5/325MG TABLET ONE (16:49)
[2023-05-11] MEDS ORDERED: HYDROCODONE/APAP 5/325MG TABLET PO ONE (17:00)
[2023-05-11] MEDS ORDERED: OXYC5CAP18 PO (17:11)
[2023-05-11 17:56] VITALS: BP 135/70; TEMP 98.4; O2SAT 100
== END 2023-05-11 17:33 | disposition home or self-care (01) ==
LOC: ER 15:41
DX: S42.022A Displaced fracture of shaft of left clavicle, initial encounter for closed fracture (principal); R51.9 Headache, unspecified; M54.2 Cervicalgia; I10 Essential (primary) hypertension; J45.909 Unspecified asthma, uncomplicated; Z88.8 Allergy status to other drugs, medicaments and biological substances; W18.30XA Fall on same level, unspecified, initial encounter; Y93.89 Activity, other specified; Y92.89 Other specified places as the place of occurrence of the external cause; Y99.8 Other external cause status
CPT/HCPCS: 70450-TC; 72125-TC; 73000-TC; 73030-TC